=== PATIENT | male | born 1995 | race African-American/Black ===

== ENCOUNTER 2021-12-28 02:09 | Inpatient (IN) | payer OTHER ==
[~2021-12-28] VITALS: Ht 165.1 cm; Wt 108.4 kg
[2021-12-28 02:51] LABS: HEMOGLOBIN 15.7 gm/dl (14.0-17.5); RED BLOOD COUNT 5.04 M/UL (4.20-5.50); WHITE BLOOD COUNT 16.1 K/UL (4.5-11.0)
[2021-12-28 02:54] LABS: BUN/CREATININE RATIO 16 (0-10)
[2021-12-28] MEDS ORDERED: MUCINEX600 MG PO (13:40)
[2021-12-28] MEDS ORDERED: CLARITIN-D 241 EACH PO (13:40)
[2021-12-29 05:27] LABS: HEMOGLOBIN 14.2 gm/dl (14.0-17.5); RED BLOOD COUNT 4.7 M/UL (4.20-5.50); WHITE BLOOD COUNT 17.2 K/UL (4.5-11.0)
[2021-12-29 05:38] LABS: BUN/CREATININE RATIO 18 (0-10)
[2021-12-31 03:13] LABS: HEMOGLOBIN 13.6 gm/dl (14.0-17.5); RED BLOOD COUNT 4.53 M/UL (4.20-5.50); WHITE BLOOD COUNT 18.3 K/UL (4.5-11.0)
[2021-12-31] MEDS ORDERED: METOPROLOL SUCC25 MG PO (11:03)
[2021-12-31 12:15] LABS: E001-IGE CAT DANDER 4.74 kU/L (Class IV); E005-IGE DOG DANDER 7.28 kU/L (Class IV); G002-IGE BERMUDA GRASS 4.58 kU/L (Class IV); M001-IGE PENICILLIUM CHRYSOGEN 0.12 kU/L (Class 0/I); M002-IGE CLADOSPORIUM HERBARUM <0.10 kU/L (Class 0); M003-IGE ASPERGILLUS FUMIGATUS 0.16 kU/L (Class 0/I); M006-IGE ALTERNARIA ALTERNATA <0.10 kU/L (Class 0); T001-IGE MAPLE/BOX ELDER 0.29 kU/L (Class 0/I); T003-IGE COMMON SILVER BIRCH 0.24 kU/L (Class 0/I); T007-IGE OAK, WHITE 0.37 kU/L (Class I); T010-IGE WALNUT 1.07 kU/L (Class II); T011-IGE MAPLE LEAF SYCAMORE 0.24 kU/L (Class 0/I); T014-IGE COTTONWOOD 0.44 kU/L (Class I); T070-IGE WHITE MULBERRY 0.11 kU/L (Class 0/I); W018-IGE SHEEP SORREL 0.41 kU/L (Class I)
== END 2021-12-31 12:01 | DRG 871 ==
LOC: ER1 02:09 → CDU 04:38 → PROG CARE 12-29 19:38
PROVIDERS: Family Medicine; Internal Medicine; Nurse Practitioner Family; ADMIT Emergency Medicine
PROC: 5A0945A Assistance with Respiratory Ventilation, 24-96 Consecutive Hours, High Flow/Velocity Cannula (ICD-10-PCS; principal; 2021-12-28)
DX: A41.9 Sepsis, unspecified organism (principal); J96.01 Acute respiratory failure with hypoxia; J96.02 Acute respiratory failure with hypercapnia; J45.901 Unspecified asthma with (acute) exacerbation; E87.2 Acidosis; R04.2 Hemoptysis; Z68.41 Body mass index [BMI] 40.0-44.9, adult; J98.11 Atelectasis; E66.9 Obesity, unspecified; Z90.49 Acquired absence of other specified parts of digestive tract; J20.9 Acute bronchitis, unspecified; Z83.3 Family history of diabetes mellitus; Z20.822 Contact with and (suspected) exposure to COVID-19; Z80.9 Family history of malignant neoplasm, unspecified; Z82.49 Family history of ischemic heart disease and other diseases of the circulatory system; Z79.899 Other long term (current) drug therapy; R73.9 Hyperglycemia, unspecified; T38.0X5A Adverse effect of glucocorticoids and synthetic analogues, initial encounter; Z88.6 Allergy status to analgesic agent
CPT/HCPCS: 36415; 36600; 71045; 80048; 80053; 81001; 82550; 82553; 82785; 82803; 82962; 83605; 83735; 84484; 85025; 85027; 85652; 86140; 87040; 93005; 94640; 94664; 94760; 96365; 96375; 99285; J0456; J0696; J1650; J2920; J2930; J3475; Q9967; U0002